=== PATIENT | male | born 1960 | race Hispanic/Latino ===

== ENCOUNTER 2023-11-22 14:29 | Emergency (ER) | payer BC ==
[~2023-11-22] VITALS: Ht 172.7 cm; Wt 117.9 kg
[2023-11-22] MEDS: METOCLOPRAMIDE 10 MG/2 ML VIAL IVP ONE (15:11)
[2023-11-22] MEDS: FAMOTIDINE 20MG VIAL IV ONE (15:11)
[2023-11-22] MEDS: 0.9%NACL 1000ML 1,000 ML IV ONE (15:11)
[2023-11-22 15:15] LABS: BASOPHILS # (AUTO) 0.11 K/uL (0.00-0.20); BASOPHILS % (AUTO) 1.1 % (0.0-5.0); EOSINOPHILS # (AUTO) 0.51 K/uL (0.00-0.70); EOSINOPHILS % (AUTO) 5.2 % (0.0-8.0); IMMATURE GRANULOCYTE ABSOLUTE 0.03 K/uL (0-1); LYMPHOCYTES # (AUTO) 3.6 K/uL (1.0-4.8); LYMPHOCYTES % (AUTO) 36.7 % (21.0-51.0); MEAN CORPUSCULAR HEMOGLOBIN 30.8 pg (27.0-33.0); MEAN CORPUSCULAR HGB CONC 35.6 g/dL (32.0-36.0); MEAN CORPUSCULAR VOLUME 86.5 fL (79-99); MONOCYTES # (AUTO) 0.9 K/uL (0.1-1.0); NEUTROPHILS # (AUTO) 4.7 K/uL (1.8-7.7); NEUTROPHILS % (AUTO) 47.7 % (40.0-77.0); PLATELET COUNT (AUTO) 229 K/uL (130-400); RED BLOOD CELL COUNT(AUTO) 4.97 MIL/uL (4.50-6.20); RED CELL DISTRIBUTION WIDTH 11.9 % (11.0-15.5); WHITE BLOOD COUNT (AUTO) 9.8 K/uL (4.8-10.8)
[2023-11-22] MEDS: MORPHINE 4 MG SYG IVP ONE (15:15)
[2023-11-22 15:21] LABS: APPEARANCE,URINE CLEAR (CLEAR); BILIRUBIN,URINE NEGATIVE (NEGATIVE); COLOR,URINE LIGHT-YELLOW (YELLOW); GLUCOSE, URINE (UA) NEGATIVE (NEGATIVE); KETONES,URINE NEGATIVE (NEGATIVE); LEUKOCYTE ESTERASE ,URINE NEGATIVE Leu/uL (NEGATIVE); NITRATE,URINE NEGATIVE (NEGATIVE); OCCULT BLOOD,URINE NEGATIVE (NEGATIVE); PH,URINE 5.5 (5.0-8.0); PROTEIN,URINE NEGATIVE (NEGATIVE); UROBILINOGEN,URINE 0.2 mg/dL (0.2-1.0)
[2023-11-22 15:23] LABS: ADD UA MICROSCOPIC NO
[2023-11-22 15:39] LABS: CREATININE 0.9 mg/dL (0.5-1.3); POTASSIUM 4.3 mmol/L (3.5-5.1)
[2023-11-22 15:43] LABS: ALBUMIN 3.7 g/dL (3.5-5.0); BILIRUBIN,TOTAL 0.8 mg/dL (0.2-1.0); TOTAL PROTEIN, SERUM 7.8 g/dL (6.0-8.3)
[2023-11-22 19:00] VITALS: BP 121/69; PULSE 56; RESP 18; O2SAT 97
== END 2023-11-22 19:00 | disposition home or self-care (01) ==
LOC: EDH 14:29
DX: K80.50 Calculus of bile duct without cholangitis or cholecystitis without obstruction (principal); K76.0 Fatty (change of) liver, not elsewhere classified; E66.01 Morbid (severe) obesity due to excess calories; E78.00 Pure hypercholesterolemia, unspecified; F17.200 Nicotine dependence, unspecified, uncomplicated; I10 Essential (primary) hypertension; Z68.39 Body mass index [BMI] 39.0-39.9, adult
CPT/HCPCS: 99284; 96374; 76705; 96375; 96361; 80053; 83690; 85025; 81003; 36415; J3490; J7030; J2270; J2765